=== PATIENT | female | born 1985 | race Caucasian/White ===

== ENCOUNTER 2019-06-03 21:26 | Outpatient (CLI) | payer OTHER ==
[2019-06-03] MEDS: TERBUTALINE 1 MG/ML INJ SC (22:53)
[2019-06-03 23:23] LABS: ADD UMIC YES; UR ASCORBIC ACID NEGATIVE (NEGATIVE); UR BACTERIA FEW /HPF (NONE SEEN); UR BILIRUBIN (Dip) NEGATIVE (NEGATIVE); UR BLOOD (Dip) NEGATIVE (NEGATIVE); UR CLARITY CLEAR (CLEAR); UR COLOR YELLOW (YELLOW); UR GLUCOSE (Dip) NEGATIVE (NEGATIVE); UR KETONES (Dip) NEGATIVE (NEGATIVE); UR LEUKOCYTE ESTERASE (Dip) TRACE Leu/ul (NEGATIVE); UR NITRITE (Dip) NEGATIVE (NEGATIVE); UR RBC 1 /HPF (0-5); UR SPECIFIC GRAVITY (Dip) 1.012 (1.003-1.030); UR SQUAMOUS EPITHELIAL CELL FEW /HPF (FEW); UR TOTAL PROTEIN (Dip) NEGATIVE (NEGATIVE); UR UROBILINOGEN (Dip) NEGATIVE (NEGATIVE); UR WBC 1 /HPF (0-5)
[2019-06-03] MEDS: LACTATED RINGER'S 1,000 ML IV (23:43)
[2019-06-04] MEDS: TERBUTALINE 1 MG/ML INJ SC (00:22)
[2019-06-04] MEDS: BETAMET NA PHOS/AC(6 MG/ML) 2 ML INJ SYG IM (01:16)
== END 2019-06-04 01:31 | disposition home or self-care (01) ==
LOC: OBT 21:26 → L-D 21:28
DX: O62.9 Abnormality of forces of labor, unspecified (principal); Z3A.36 36 weeks gestation of pregnancy
CPT/HCPCS: 36415; 76818; 81001; 96360

== ENCOUNTER 2019-06-04 23:28 | Outpatient (CLI) | payer OTHER ==
[2019-06-05] MEDS: BETAMET NA PHOS/AC(6 MG/ML) 2 ML INJ SYG IM (00:58)
== END 2019-06-05 02:45 | disposition home or self-care (01) ==
LOC: OBT 23:28 → L-D 23:28
DX: O62.9 Abnormality of forces of labor, unspecified (principal); Z3A.36 36 weeks gestation of pregnancy
CPT/HCPCS: J0702